=== PATIENT | female | born 1935 | race Caucasian/White ===

== ENCOUNTER 2017-12-24 03:27 | Inpatient (IN) | payer MEDICARE ==
[2017-12-24 04:33] LABS: BASO # 0.1 10^3/uL (0.0-0.2); BASO % 0.6 % (0.0-1.0); EOS # 0.1 10^3/uL (0.0-0.50); EOS % 0.7 % (0.0-3.0); HEMATOCRIT 44.6 % (36.0-47.0); HEMOGLOBIN 15.2 g/dl (12.0-15.5); IMMATURE GRANULOCYTE % 0.4 % (0-3.0); LYMPH # 1.2 10^3/uL (1.5-4.5); LYMPH % 11.7 % (24.0-44.0); MEAN CORPUSCULAR HGB CONC 34.1 g/dl (32.0-36.5); MEAN CORPUSCULAR VOLUME 90.8 fl (80.0-96.0); MONO # 0.8 10^3/uL (0.0-0.8); MONO % 7.5 % (0.0-5.0); NEUTROPHILS # 8.4 10^3/uL (1.8-7.7); NEUTROPHILS % 79.1 % (36.0-66.0); PLATELET COUNT, AUTOMATED 163 10^3/uL (150-450); RED BLOOD COUNT 4.91 10^6/uL (4.00-5.40); RED CELL DISTRIBUTION WIDTH 13.4 % (11.5-14.5); WHITE BLOOD COUNT 10.6 10^3/uL (4.0-10.0)
[2017-12-24 04:48] LABS: INR 0.93; PARTIAL THROMBOPLASTIN TIME 34.7 SECONDS (25.4-37.6); PROTHROMBIN TIME 12.6 SECONDS (12.1-14.4)
[2017-12-24] MEDS: TETANUS/DIPHTHERIA TOX ADSORB ADULT 0.5ML SYR/VIAL (90714) IM (04:51)
[2017-12-24] MEDS: METOPROLOL 5 MG/5 ML VIAL IV ×8 (04:51→23:11)
[2017-12-24 04:52] LABS: ANION GAP 11 MEQ/L (8-16); BLOOD UREA NITROGEN 17 MG/DL (7-18); CARBON DIOXIDE LEVEL 24 MEQ/L (21-32); CHLORIDE LEVEL 105 MEQ/L (98-107); CPK CREATINE PHOSPHOKINASE 55 U/L (26-192); CREATININE FOR GFR 0.71 MG/DL (0.55-1.30); FREE T4 1.33 NG/DL (0.76-1.46); GLOMERULAR FILTRATION RATE > 60.0 (>32); GLUCOSE, FASTING 139 MG/DL (70-100); POTASSIUM SERUM 3.2 MEQ/L (3.5-5.1); SODIUM LEVEL 140 MEQ/L (136-145); TROPONIN I 0.04 NG/ML (< 0.10)
[2017-12-24 04:57] LABS: CK-MB VALUE MASS 1.7 NG/ML (<3.6); MB/CK RELATIVE INDEX 3.09 (< OR =4); THYROID STIMULATING HORMONE 0.777 uIU/ML (0.358-3.740)
[2017-12-24] MEDS: POTASSIUM CHLORIDE 10 MEQ SR TABLET PO (05:14)
[2017-12-24 05:43] LABS: KETONE, URINE AUTO RFX NEGATIVE (NEGATIVE); NITRITE, URINE AUTO RFX NEGATIVE (NEGATIVE); RBC, URINE AUTO RFX 4 /HPF (0-3); SPECIFIC GRAVITY UR AUTO RFX 1.004 (1.002-1.035); SQUAM EPITHELIAL CELL UR AURFX 0 /HPF (0-6)
[2017-12-24 05:44] LABS: LEUKOCYTE ESTERASE UR AUTO RFX TRACE (NEGATIVE); WBC, URINE AUTO RFX 12 /HPF (0-3)
[2017-12-24] MEDS: METOPROLOL TART 50 MG TAB PO (06:22)
[2017-12-24] MEDS ORDERED: ONDANSETRON 4MG/2ML VIAL (J2405) IV (08:15)
[2017-12-24] MEDS: ENOXAPARIN 30 MG/0.3 ML SYR (J1650) SC (09:00)
[2017-12-24] MEDS: METOPROLOL TART 25 MG TABLET PO ×4 (12:51→23:59)
[2017-12-24] MEDS: LEVOTHYROXINE 75MCG TABLET (0.075MG) PO (12:56)
[2017-12-24 16:29] LABS: CK-MB VALUE MASS 2.5 NG/ML (<3.6); CPK CREATINE PHOSPHOKINASE 66 U/L (26-192); MB/CK RELATIVE INDEX 3.78 (< OR =4); TROPONIN I 0.27 NG/ML (< 0.10)
[2017-12-24] MEDS: ACETAMINOPHEN 500 MG TAB PO (22:00)
[2017-12-24] MEDS: **hydrALAZINE** 10 MG TAB PO (22:01)
[2017-12-25 00:49] LABS: CK-MB VALUE MASS 2.2 NG/ML (<3.6); CPK CREATINE PHOSPHOKINASE 57 U/L (26-192); MB/CK RELATIVE INDEX 3.85 (< OR =4); TROPONIN I 0.26 NG/ML (< 0.10)
[2017-12-25] MEDS: **hydrALAZINE** 10 MG TAB PO ×4 (02:14→20:58)
[2017-12-25] MEDS: LABETALOL HCL 100 MG/20 ML VIAL IV (02:49)
[2017-12-25] MEDS: METOPROLOL TART 25 MG TABLET PO ×3 (05:53→18:32)
[2017-12-25] MEDS: LEVOTHYROXINE 75MCG TABLET (0.075MG) PO (05:53)
[2017-12-25 07:07] LABS: BASO % 0.5 % (0.0-1.0); EOS # 0.1 10^3/uL (0.0-0.50); HEMATOCRIT 39.6 % (36.0-47.0); HEMOGLOBIN 13.4 g/dl (12.0-15.5); IMMATURE GRANULOCYTE % 0.5 % (0-3.0); LYMPH # 2.5 10^3/uL (1.5-4.5); LYMPH % 30.4 % (24.0-44.0); MEAN CORPUSCULAR HGB CONC 33.8 g/dl (32.0-36.5); MEAN CORPUSCULAR VOLUME 91.7 fl (80.0-96.0); MONO # 0.9 10^3/uL (0.0-0.8); MONO % 10.5 % (0.0-5.0); NEUTROPHILS # 4.6 10^3/uL (1.8-7.7); NEUTROPHILS % 57.1 % (36.0-66.0); PLATELET COUNT, AUTOMATED 182 10^3/uL (150-450); RED BLOOD COUNT 4.32 10^6/uL (4.00-5.40); RED CELL DISTRIBUTION WIDTH 13.8 % (11.5-14.5); WHITE BLOOD COUNT 8.1 10^3/uL (4.0-10.0)
[2017-12-25 07:22] LABS: ANION GAP 7 MEQ/L (8-16); BLOOD UREA NITROGEN 20 MG/DL (7-18); CARBON DIOXIDE LEVEL 27 MEQ/L (21-32); CHLORIDE LEVEL 104 MEQ/L (98-107); CREATININE FOR GFR 0.75 MG/DL (0.55-1.30); GLOMERULAR FILTRATION RATE > 60.0 (>32); GLUCOSE, FASTING 104 MG/DL (70-100); POTASSIUM SERUM 3.6 MEQ/L (3.5-5.1); SODIUM LEVEL 138 MEQ/L (136-145)
[2017-12-25] MEDS: ENOXAPARIN 30 MG/0.3 ML SYR (J1650) SC (08:14)
[2017-12-25] MEDS: ASPIRIN 81 MG ENTERIC TAB PO (08:14)
[2017-12-25] MEDS: LISINOPRIL 10 MG TAB PO (12:09)
[2017-12-25] MEDS: LISINOPRIL 20 MG TAB PO (20:10)
[2017-12-25] MEDS: FUROSEMIDE 40 MG/4 ML VIAL (J1940) IV (22:49)
[2017-12-25] MEDS: ACETAMINOPHEN 500 MG TAB PO (22:52)
[2017-12-26] MEDS: METOPROLOL TART 25 MG TABLET PO ×5 (00:03→23:20)
[2017-12-26] MEDS: niCARdipine IV 40 MG in APPROPRIATE DILUENT 1 EA IV ×3 (01:36→15:43)
[2017-12-26] MEDS: **hydrALAZINE** 10 MG TAB PO ×3 (04:00→15:43)
[2017-12-26 04:43] LABS: BASO # 0.1 10^3/uL (0.0-0.2); BASO % 0.6 % (0.0-1.0); EOS # 0.2 10^3/uL (0.0-0.50); EOS % 1.6 % (0.0-3.0); HEMATOCRIT 45.1 % (36.0-47.0); IMMATURE GRANULOCYTE % 0.3 % (0-3.0); LYMPH # 2.2 10^3/uL (1.5-4.5); LYMPH % 22.3 % (24.0-44.0); MEAN CORPUSCULAR HEMOGLOBIN 30.4 pg (27.0-33.0); MEAN CORPUSCULAR HGB CONC 34.4 g/dl (32.0-36.5); MEAN CORPUSCULAR VOLUME 88.4 fl (80.0-96.0); MONO % 10.4 % (0.0-5.0); NEUTROPHILS # 6.3 10^3/uL (1.8-7.7); NEUTROPHILS % 64.8 % (36.0-66.0); PLATELET COUNT, AUTOMATED 165 10^3/uL (150-450); RED CELL DISTRIBUTION WIDTH 13.4 % (11.5-14.5); WHITE BLOOD COUNT 9.6 10^3/uL (4.0-10.0)
[2017-12-26 04:56] LABS: HEMOGLOBIN 15.5 g/dl (12.0-15.5)
[2017-12-26 05:02] LABS: ANION GAP 8 MEQ/L (8-16); BLOOD UREA NITROGEN 14 MG/DL (7-18); CALCIUM LEVEL 9.1 MG/DL (8.8-10.2); CARBON DIOXIDE LEVEL 27 MEQ/L (21-32); CHLORIDE LEVEL 104 MEQ/L (98-107); CREATININE FOR GFR 0.61 MG/DL (0.55-1.30); GLOMERULAR FILTRATION RATE > 60.0 (>32); GLUCOSE, FASTING 121 MG/DL (70-100); POTASSIUM SERUM 3.4 MEQ/L (3.5-5.1); SODIUM LEVEL 139 MEQ/L (136-145)
[2017-12-26] MEDS: LEVOTHYROXINE 75MCG TABLET (0.075MG) PO (05:55)
[2017-12-26] MEDS: ASPIRIN 81 MG ENTERIC TAB PO (08:50)
[2017-12-26] MEDS: ENOXAPARIN 30 MG/0.3 ML SYR (J1650) SC (08:50)
[2017-12-26] MEDS: LISINOPRIL 20 MG TAB PO ×2 (08:50→21:20)
[2017-12-26] MEDS ORDERED: METOPROLOL TART 50 MG TAB PO (09:00)
[2017-12-26] MEDS: amLODIPine 10 MG TAB PO (12:34)
[2017-12-26] MEDS ORDERED: ACETAMINOPHEN 500 MG TAB PO (16:00)
[2017-12-26] MEDS ORDERED: cloNIDine 0.2 MG TAB PO (21:00)
[2017-12-26] MEDS ORDERED: QUINAPRIL 20 MG TAB PO (21:00)
[2017-12-26] MEDS: **hydrALAZINE HCL** 25 MG TAB PO (21:20)
[2017-12-27] MEDS: **hydrALAZINE HCL** 25 MG TAB PO (03:30)
[2017-12-27 04:30] LABS: BASO # 0.1 10^3/uL (0.0-0.2); BASO % 0.5 % (0.0-1.0); EOS # 0.2 10^3/uL (0.0-0.50); EOS % 1.9 % (0.0-3.0); HEMATOCRIT 43.7 % (36.0-47.0); HEMOGLOBIN 15.1 g/dl (12.0-15.5); IMMATURE GRANULOCYTE % 0.4 % (0-3.0); LYMPH # 2.3 10^3/uL (1.5-4.5); LYMPH % 22.5 % (24.0-44.0); MEAN CORPUSCULAR HEMOGLOBIN 31.1 pg (27.0-33.0); MEAN CORPUSCULAR HGB CONC 34.6 g/dl (32.0-36.5); MEAN CORPUSCULAR VOLUME 89.9 fl (80.0-96.0); NEUTROPHILS # 6.7 10^3/uL (1.8-7.7); NEUTROPHILS % 64.7 % (36.0-66.0); PLATELET COUNT, AUTOMATED 199 10^3/uL (150-450); RED BLOOD COUNT 4.86 10^6/uL (4.00-5.40); RED CELL DISTRIBUTION WIDTH 13.5 % (11.5-14.5); WHITE BLOOD COUNT 10.4 10^3/uL (4.0-10.0)
[2017-12-27 04:51] LABS: ANION GAP 7 MEQ/L (8-16); BLOOD UREA NITROGEN 23 MG/DL (7-18); CALCIUM LEVEL 9.1 MG/DL (8.8-10.2); CARBON DIOXIDE LEVEL 30 MEQ/L (21-32); CHLORIDE LEVEL 102 MEQ/L (98-107); CREATININE FOR GFR 0.78 MG/DL (0.55-1.30); GLOMERULAR FILTRATION RATE > 60.0 (>32); GLUCOSE, FASTING 98 MG/DL (70-100); POTASSIUM SERUM 3.5 MEQ/L (3.5-5.1); SODIUM LEVEL 139 MEQ/L (136-145)
[2017-12-27] MEDS: METOPROLOL TART 25 MG TABLET PO ×3 (05:49→17:35)
[2017-12-27] MEDS: LEVOTHYROXINE 75MCG TABLET (0.075MG) PO (05:49)
[2017-12-27] MEDS: ENOXAPARIN 30 MG/0.3 ML SYR (J1650) SC (08:32)
[2017-12-27] MEDS: ASPIRIN 81 MG ENTERIC TAB PO (08:32)
[2017-12-27] MEDS: amLODIPine 10 MG TAB PO (08:32)
[2017-12-27] MEDS: LISINOPRIL 20 MG TAB PO ×2 (08:32→20:05)
[2017-12-27] MEDS: **hydrALAZINE** 50 MG TAB PO ×3 (10:00→21:46)
[2017-12-27] MEDS ORDERED: **hydrALAZINE** 50 MG TAB PO (12:00)
[2017-12-27] MEDS: SLF 3 ML SYR IV ×2 (14:00→21:46)
[2017-12-27] MEDS ORDERED: SLF 3 ML SYR IV (14:00)
[2017-12-28] MEDS: METOPROLOL TART 25 MG TABLET PO ×3 (00:09→11:54)
[2017-12-28] MEDS: ACETAMINOPHEN 500 MG TAB PO (00:09)
[2017-12-28 04:31] LABS: BASO # 0.1 10^3/uL (0.0-0.2); BASO % 0.5 % (0.0-1.0); EOS # 0.1 10^3/uL (0.0-0.50); EOS % 1.4 % (0.0-3.0); HEMATOCRIT 40.2 % (36.0-47.0); HEMOGLOBIN 13.6 g/dl (12.0-15.5); IMMATURE GRANULOCYTE % 0.4 % (0-3.0); LYMPH # 3.1 10^3/uL (1.5-4.5); LYMPH % 33.2 % (24.0-44.0); MEAN CORPUSCULAR HEMOGLOBIN 30.5 pg (27.0-33.0); MEAN CORPUSCULAR HGB CONC 33.8 g/dl (32.0-36.5); MEAN CORPUSCULAR VOLUME 90.1 fl (80.0-96.0); MONO # 1.2 10^3/uL (0.0-0.8); NEUTROPHILS # 4.8 10^3/uL (1.8-7.7); NEUTROPHILS % 51.5 % (36.0-66.0); PLATELET COUNT, AUTOMATED 142 10^3/uL (150-450); RED BLOOD COUNT 4.46 10^6/uL (4.00-5.40); RED CELL DISTRIBUTION WIDTH 13.7 % (11.5-14.5); WHITE BLOOD COUNT 9.3 10^3/uL (4.0-10.0)
[2017-12-28] MEDS: **hydrALAZINE** 50 MG TAB PO ×2 (04:32→10:00)
[2017-12-28 04:51] LABS: ANION GAP 9 MEQ/L (8-16); BLOOD UREA NITROGEN 33 MG/DL (7-18); CALCIUM LEVEL 8.7 MG/DL (8.8-10.2); CARBON DIOXIDE LEVEL 27 MEQ/L (21-32); CHLORIDE LEVEL 105 MEQ/L (98-107); CREATININE FOR GFR 0.92 MG/DL (0.55-1.30); GLOMERULAR FILTRATION RATE > 60.0 (>32); GLUCOSE, FASTING 107 MG/DL (70-100); POTASSIUM SERUM 3.4 MEQ/L (3.5-5.1); SODIUM LEVEL 141 MEQ/L (136-145)
[2017-12-28] MEDS: LEVOTHYROXINE 75MCG TABLET (0.075MG) PO (06:06)
[2017-12-28] MEDS: SLF 3 ML SYR IV ×2 (06:07→14:27)
[2017-12-28] MEDS: ASPIRIN 81 MG ENTERIC TAB PO (08:05)
[2017-12-28] MEDS: amLODIPine 10 MG TAB PO (08:05)
[2017-12-28] MEDS: LISINOPRIL 20 MG TAB PO (08:05)
[2017-12-28] MEDS: POTASSIUM CHLORIDE 10 MEQ SR TABLET PO (08:05)
[2017-12-28] MEDS: ENOXAPARIN 30 MG/0.3 ML SYR (J1650) SC (08:06)
== END 2017-12-28 15:10 | disposition home or self-care (01) | DRG 310 ==
LOC: M ICU 12-25 10:50 → M ED 03:27 → M ED INP 08:11
DX: I48.91 Unspecified atrial fibrillation (principal); R55 Syncope and collapse; S01.112A Laceration without foreign body of left eyelid and periocular area, initial encounter; I16.0 Hypertensive urgency; W18.09XA Striking against other object with subsequent fall, initial encounter; S00.83XA Contusion of other part of head, initial encounter; Y92.002 Bathroom of unspecified non-institutional (private) residence as the place of occurrence of the external cause; I10 Essential (primary) hypertension; E03.9 Hypothyroidism, unspecified; M81.0 Age-related osteoporosis without current pathological fracture; M51.36 Other intervertebral disc degeneration, lumbar region; Z66 Do not resuscitate; Z96.642 Presence of left artificial hip joint; Z90.49 Acquired absence of other specified parts of digestive tract; Z87.891 Personal history of nicotine dependence; Z79.899 Other long term (current) drug therapy